=== PATIENT | male | born 1965 | race Caucasian/White ===

== ENCOUNTER 2025-04-22 11:55 | Inpatient (IN) | payer OTHER ==
[~2025-04-22] VITALS: Ht 180.3 cm; Wt 68.1 kg
[2025-04-22] MEDS ORDERED: Ondansetron HCl 2 MG / ML 2ML Vial IV ONE ×2 (12:40→15:25)
[2025-04-22] MEDS ORDERED: CeFAZolin Sodium 1,000 MG in NS 100 ML IV ONE (13:35)
[2025-04-22 13:36] LABS: Calcium, Ionized (POC) 0.98 mmol/L (1.10-1.46); Chloride (POC) 80 mmol/L (98-108); Creatinine (POC) 2.2 mg/dL (0.8-1.3); Glucose (ISTAT POC) 622 mg/dL (70-99); Hematocrit (POC) 40.0 % (41.0-53.0); Hemoglobin (POC) 13.6 g/dL (13.5-17.5); Potassium (POC) 4.6 mmol/L (3.5-5.5); Sodium (POC) 120 mmol/L (135-148); Total CO2 (POC) 28 mmol/L (21-32)
[2025-04-22 13:36] LABS: Hematocrit 35.5 % (37.0-53.0); Hemoglobin 12.1 g/dL (13.5-17.5); Mean Corpuscular HGB Conc 34.1 g/dL (31.5-36.5); Mean Corpuscular Volume 86 fL (80-100); NRBC ABSOLUTE 0.00 K/mm3 (0.00-0.02); NRBC Auto 0.0 /100 WBC (0.0-0.2); Platelet Count 664 K/mm3 (150-400); RDW Coefficient Variation 12.9 % (11.7-14.2); RDW Standard Deviation 40.5 fL (35.1-46.3)
[2025-04-22 14:09] LABS: BAND PERCENT MAN 1 % (0-8); BASOPHILS ABSOLUTE MAN 0.00 K/mm3 (0.00-0.23); BASOPHILS PERCENT MAN 0 % (0-2); EOSINOPHILS ABSOLUTE MAN 0.00 K/mm3 (0.00-0.68); EOSINOPHILS PERCENT MAN 0 % (0-6); LYMPHOCYTES ABSOLUTE MAN 1.33 K/mm3 (0.84-5.20); LYMPHOCYTES PERCENT MAN 6 % (21-46); METAMYELOCYTE ABSOLUTE MAN 0.22 K/mm3 (0.00-0.00); METAMYELOCYTE PERCENT MAN 1 % (0-0); MONOCYTES ABSOLUTE MAN 0.44 K/mm3 (0.16-1.47); MONOCYTES PERCENT MAN 2 % (4-13); NEUTROPHILS ABSOLUTE MAN 20.31 K/mm3 (1.96-9.15); SEG NEUTROPHILS PERCENT MAN 90 % (41-73)
[2025-04-22 14:13] LABS: Alanine Aminotransfer (ALT/SGP 20.0 U/L (12-78); Albumin, Blood 2.2 g/dL (3.4-5.0); Albumin/Globulin Ratio 0.3 (0.8-1.8); Anion Gap 16.0 mmol/L (3-11); Aspartate Aminotrans (AST/SGOT 25.0 U/L (12-37); Bilirubin, Total 0.7 mg/dL (0.1-1.0); Blood Urea Nitrogen 51.0 mg/dL (8-24); CO2, Blood 29.0 mmol/L (21-32); Calcium, Blood 9.8 mg/dL (8.5-10.1); Chloride, Blood 76.0 mmol/L (98-108); Creatinine, Blood 1.73 mg/dL (0.60-1.20); Globulin, Blood 6.8 g/dL (2.2-4.0); Glucose, Blood 607.0 mg/dL (70-99); Potassium, Blood 4.9 mmol/L (3.5-5.5); Sodium, Blood 116.0 mmol/L (136-145); Total Protein, Blood 9.0 g/dL (6.4-8.2)
[2025-04-22] MEDS ORDERED: Insulin Regular 100 Unit/ML 1ML Dose IV ONE ×2 (14:25→16:20)
[2025-04-22] MEDS ORDERED: HYDROmorphone HCl/Pf 1MG SYR IV ONE (14:25)
[2025-04-22 15:16] LABS: pH Blood Venous 7.52 (7.34-7.37)
[2025-04-22] MEDS ORDERED: Vancomycin (Pharmacy Consult) IV SCH (17:15)
[2025-04-22] MEDS ORDERED: Metoclopramide HCl 5MG / ML 2ML Vial IV PRN (17:15)
[2025-04-22] MEDS ORDERED: Ondansetron HCl 2 MG / ML 2ML Vial IV PRN (17:15)
[2025-04-22 17:35] LABS: Anion Gap 14.0 mmol/L (3-11); Blood Urea Nitrogen 53.0 mg/dL (8-24); CO2, Blood 32.0 mmol/L (21-32); Calcium, Blood 9.6 mg/dL (8.5-10.1); Chloride, Blood 79.0 mmol/L (98-108); Creatinine, Blood 1.6 mg/dL (0.60-1.20); Glucose, Blood 499.0 mg/dL (70-99); Potassium, Blood 4.0 mmol/L (3.5-5.5); Sodium, Blood 121.0 mmol/L (136-145)
[2025-04-22] MEDS ORDERED: CeFAZolin Sodium 2,000 MG in NS 100 ML IV SCH (18:00)
[2025-04-22] MEDS ORDERED: Insulin Human Lispro 100 Units/ML 3ML Syringe SC ONE ×2 (18:00)
[2025-04-22] MEDS ORDERED: Metoclopramide HCl 5MG / ML 2ML Vial IV ONE (18:00)
[2025-04-22] MEDS ORDERED: Insulin Human Lispro 100 Units/ML 3ML Syringe SC SCH (20:00)
[2025-04-22] MEDS ORDERED: Heparin Sodium,Porcine 5,000 UNIT/0.5 ML SDV SC SCH (21:00)
[2025-04-22] MEDS ORDERED: Lactobacil 2-S.Thermo-Bifido 1 1 Cap PO SCH (21:00)
[2025-04-22 21:42] VITALS: BP 148/73
[2025-04-22 21:43] LABS: Anion Gap 15.0 mmol/L (3-11); Blood Urea Nitrogen 46.0 mg/dL (8-24); CO2, Blood 31.0 mmol/L (21-32); Calcium, Blood 9.6 mg/dL (8.5-10.1); Chloride, Blood 82.0 mmol/L (98-108); Creatinine, Blood 1.55 mg/dL (0.60-1.20); Glucose, Blood 413.0 mg/dL (70-99); Potassium, Blood 3.6 mmol/L (3.5-5.5); Sodium, Blood 124.0 mmol/L (136-145)
[2025-04-22 23:38] LABS: Anion Gap 8.0 mmol/L (3-11); Blood Urea Nitrogen 45.0 mg/dL (8-24); CO2, Blood 34.0 mmol/L (21-32); Calcium, Blood 8.5 mg/dL (8.5-10.1); Chloride, Blood 88.0 mmol/L (98-108); Creatinine, Blood 1.54 mg/dL (0.60-1.20); Glucose, Blood 311.0 mg/dL (70-99); Potassium, Blood 3.6 mmol/L (3.5-5.5); Sodium, Blood 126.0 mmol/L (136-145)
[2025-04-22 23:39] LABS: U Amphetamine Screen Not Detected; U Barbituate Screen Not Detected; U Benzodiazapine Screen Not Detected; U Buprenorphine Screen Not Detected; U Cannabinoids Screen Not Detected; U Cocaine Screen Not Detected; U Methadone Screen Not Detected; U Methamphetamine Screen Not Detected; U Opiates Screen Not Detected; U Oxycodone Screen Not Detected; U Phencyclidine Screen Not Detected
--- NOTE | 2025-04-22 23:43 | NUR ---
TRANSFER NOTE: PT ARRIVED, ABLE TO TRANSFER SELF TO BED FROM [facility]. PT AOX4 AND ABLE TO MAKE NEEDS KNOWN. WOUND ON THE BACK LOOKS SEVERLY INFECTED, LOOKS LIKE SHINGLES BASED ON IT ON THE TRUNK. PROVIDER NOTIFIED. SCABBED OVER SO INSTRUCTED THAT HE DOESNT NEED TO BE IN [place] ROOM. CONTACT ISOLATION IN PLACE. PT ORIENTED TO ROOM AND CALL LIGHT. PLEASANT AND COOPERATIVE IN CARE. SOME COMPLAINTS OF NAUSEA AND PAIN, MEDICATED PER EMR.
[2025-04-23 01:53] LABS: Hemoglobin 11.1 g/dL (13.5-17.5)
[2025-04-23 01:57] LABS: Hematocrit 32.3 % (37.0-53.0); Mean Corpuscular HGB Conc 34.4 g/dL (31.5-36.5); Mean Corpuscular Volume 85 fL (80-100); NRBC ABSOLUTE 0.00 K/mm3 (0.00-0.02); NRBC Auto 0.0 /100 WBC (0.0-0.2); Platelet Count 656 K/mm3 (150-400); RDW Coefficient Variation 13.1 % (11.7-14.2); RDW Standard Deviation 41.1 fL (35.1-46.3)
[2025-04-23 02:22] LABS: BAND PERCENT MAN 12 % (0-8); BASOPHILS ABSOLUTE MAN 0.00 K/mm3 (0.00-0.23); BASOPHILS PERCENT MAN 0 % (0-2); EOSINOPHILS ABSOLUTE MAN 0.00 K/mm3 (0.00-0.68); EOSINOPHILS PERCENT MAN 0 % (0-6); LYMPHOCYTES ABSOLUTE MAN 0.89 K/mm3 (0.84-5.20); LYMPHOCYTES PERCENT MAN 4 % (21-46); MONOCYTES ABSOLUTE MAN 0.89 K/mm3 (0.16-1.47); MONOCYTES PERCENT MAN 4 % (4-13); MYELOCYTE ABSOLUTE MAN 0.66 K/mm3 (0.00-0.00); MYELOCYTE PERCENT MAN 3 % (0-0); Magnesium, Blood 2.0 mg/dL (1.6-2.4); NEUTROPHILS ABSOLUTE MAN 19.84 K/mm3 (1.96-9.15); SEG NEUTROPHILS PERCENT MAN 77 % (41-73)
[2025-04-23 02:25] LABS: Alanine Aminotransfer (ALT/SGP 13.0 U/L (12-78); Albumin, Blood 1.8 g/dL (3.4-5.0); Albumin/Globulin Ratio 0.4 (0.8-1.8); Anion Gap 9.0 mmol/L (3-11); Aspartate Aminotrans (AST/SGOT 25.0 U/L (12-37); Bilirubin, Total 0.4 mg/dL (0.1-1.0); Blood Urea Nitrogen 46.0 mg/dL (8-24); CO2, Blood 30.0 mmol/L (21-32); Calcium, Blood 8.6 mg/dL (8.5-10.1); Chloride, Blood 89.0 mmol/L (98-108); Creatinine, Blood 1.56 mg/dL (0.60-1.20); Globulin, Blood 5.1 g/dL (2.2-4.0); Glucose, Blood 291.0 mg/dL (70-99); Potassium, Blood 3.7 mmol/L (3.5-5.5); Sodium, Blood 124.0 mmol/L (136-145)
[2025-04-23 02:29] LABS: Total Protein, Blood 6.9 g/dL (6.4-8.2)
[2025-04-23 04:00] VITALS: BP 133/62
--- NOTE | 2025-04-23 05:53 | NUR ---
SHIFT SUMMARY: PT AOX4 TIRED BUT AROUSABLE. ABLE TO MAKE NEEDS KNOWN. SHINGLES LIKE LESIONS ON FRONT R CHEST AND R BACK SHOULDER WOUND IS VERY INFECTED, PURULENT DRAINAGE, HOT AND SENSITIVE. WOUND CLEANED A BIT WITH WOUND CLEANSER AND GAUZE. PT COMPLAINED OF PAIN AND DISCOMFORT FROM THE WOUND, PROVIDER NOTIFIED AND MEDICATED PER EMR. PT COMPLAINED OF SOME ANXIETY AND INABILITY TO SLEEP, PROVIDER ORDERED SOME ATARAX WHICH HAS HELPED. CBGS WERE VERY HIGH IN THE ED AND TRENDING DOWN UPON ADMISSION, Q4 CBG AND INSULIN ORDERED. HAD SEVERE N/V IN ED AND NOT ABLE TO KEEP DOWN ANY FOOD, HAS BEEN MEDICATED AND HAS BEEN ABLE TO EAT SOME CHEESE AND AN ENSURE THIS EVENING AND KEEP IT DOWN. PT STATES HASNT EATEN IN 3-4 DAYS DUE TO N/V. TOLERATING MEDICATIONS WELL, PT PLEASANT AND COOPERATIVE IN CARE. IN BED RESTING, BED IN LOWEST POSITION, CALL LIGHT IN REACH. CONTINUING CARE.
[2025-04-23 06:19] LABS: Alanine Aminotransfer (ALT/SGP 10.0 U/L (12-78); Albumin, Blood 1.8 g/dL (3.4-5.0); Albumin/Globulin Ratio 0.4 (0.8-1.8); Anion Gap 10.0 mmol/L (3-11); Aspartate Aminotrans (AST/SGOT 26.0 U/L (12-37); Bilirubin, Total 0.4 mg/dL (0.1-1.0); Blood Urea Nitrogen 47.0 mg/dL (8-24); CO2, Blood 31.0 mmol/L (21-32); Calcium, Blood 8.6 mg/dL (8.5-10.1); Chloride, Blood 86.0 mmol/L (98-108); Creatinine, Blood 1.54 mg/dL (0.60-1.20); Globulin, Blood 4.9 g/dL (2.2-4.0); Glucose, Blood 317.0 mg/dL (70-99); Potassium, Blood 3.5 mmol/L (3.5-5.5); Sodium, Blood 123.0 mmol/L (136-145); Total Protein, Blood 6.7 g/dL (6.4-8.2)
[2025-04-23 07:29] VITALS: BP 138/71
[2025-04-23] MEDS ORDERED: Insulin NPH 100 Unit / ML 10ML Vial SC ONE (07:40)
[2025-04-23] MEDS ORDERED: NS 1,000 ML IV SCH (08:00)
[2025-04-23 14:59] VITALS: BP 126/67
--- NOTE | 2025-04-23 17:59 | NUR ---
NO CHANGES IN PTS STATUS TODAY. PT HAD C/O PAIN AND NAUSEA BUT HAD RELIEF WITH PRN MEDICATIONS. PT HAS NO QUESTIONS OR CONCERNS AT THIS TIME
[2025-04-23 19:25] VITALS: BP 141/67
[2025-04-23] MEDS ORDERED: Insulin Glargine-Yfgn 100 Unit/mL 3 ML SYR SC SCH (21:00)
[2025-04-24 03:48] VITALS: BP 164/84
--- NOTE | 2025-04-24 04:37 | NUR ---
SHIFT SUMMARY: PT AOX4 IND IN THE ROOM, ALTHOUGH HE IS SLOW. WOUND IS LOOKING BETTER, WITH LESS DRAINAGE, BUT STILL SOME PURULENT/ SEROSANG NOTED. TOLERATING MEDICATIONS WELL. COMPLAINS OF A LOT OF NAUSEA BUT NO VOMITTING THIS NIGHT. SOME PAIN, MEDICATED PER EMR. CBG IS TRENDING DOWN. DOWN TO 133 @0400 CHECK AND DID NOT NEED COVERAGE. SOME PO INTAKE OF SNACKS AND ENSURE. ABLE TO KEEP IT DOWN. PT CALLS APPROPRIATELY AND IS ABLE TO MAKE NEEDS KNOWN. PT IN BED RESTING, BED IN LOWEST POSITION, CALL LIGHT IN REACH. CONTINUING CARE.
[2025-04-24 07:52] VITALS: BP 152/75
[2025-04-24] MEDS ORDERED: NS 250 ML IV PRN ×2 (08:20→22:15)
[2025-04-24 08:40] LABS: Hematocrit 33.1 % (37.0-53.0); Hemoglobin 10.9 g/dL (13.5-17.5); Mean Corpuscular HGB Conc 32.9 g/dL (31.5-36.5); Mean Corpuscular Volume 89 fL (80-100); NRBC ABSOLUTE 0.00 K/mm3 (0.00-0.02); NRBC Auto 0.0 /100 WBC (0.0-0.2); Platelet Count 521 K/mm3 (150-400); RDW Coefficient Variation 13.3 % (11.7-14.2); RDW Standard Deviation 43.6 fL (35.1-46.3)
[2025-04-24 09:06] LABS: Vancomycin, Trough 28.8 ug/mL (5.0-10.0)
[2025-04-24 09:08] LABS: Anion Gap 7.0 mmol/L (3-11); Blood Urea Nitrogen 39.0 mg/dL (8-24); CO2, Blood 30.0 mmol/L (21-32); Calcium, Blood 8.0 mg/dL (8.5-10.1); Chloride, Blood 95.0 mmol/L (98-108); Creatinine, Blood 1.62 mg/dL (0.60-1.20); Glucose, Blood 168.0 mg/dL (70-99); Potassium, Blood 3.1 mmol/L (3.5-5.5); Sodium, Blood 129.0 mmol/L (136-145)
--- NOTE | 2025-04-24 17:31 | NUR ---
NOTE PT RESTING. UP ADLIB. GAIT STEADY. TOOK A SHOWER. CHANGED OSTOMY WAFER AND BAG. VSS. AC/HS CBG. INSULIN NEEDED TO COVER VIA SLIDING SCALE. MEDICATED WITH TRAMADOL X2. EFFECTIVE FOR WOUND PAIN. MEDICATED WITH ZOFRAN X2. PT HAS CHRONIC HICCUPS. 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 LESS RED, AND PAINFUL. VOIDING PER URINAL. EATING WELL. BED LOW AND LOCKED. CALL LIGHT WITH IN REACH. CARE ONGOING.
[2025-04-24 19:28] VITALS: BP 130/73
[2025-04-24] MEDS ORDERED: Insulin Glargine-Yfgn 100 Unit/mL 3 ML SYR SC SCH (21:00)
[2025-04-24] MEDS ORDERED: Insulin Human Lispro 100 Units/ML 3ML Syringe SC SCH (21:00)
--- NOTE | 2025-04-25 04:23 | NUR ---
SHIFT SUMMARY PATIENT HAD NO ACUTE CHANGES. ALERT ORIENTED AND INDEPENDENT IN ROOM. DENIES CHEST PAIN, SOB, AND N/V. VSS/AFEBRILE. PIV INTACT. IV ABX INFUSED. CBG 267. CALL LIGHT IN REACH. BED IN LOWEST POSITION. WILL CONTINUE TO MONITOR UNTIL DAY SHIFT NURSE ASSUMES CARE.
[2025-04-25 05:17] VITALS: BP 143/73
[2025-04-25] MEDS ORDERED: Polyethylene Glycol 3350 17 gm PO PRN (07:20)
[2025-04-25 07:42] LABS: Anion Gap 7.0 mmol/L (3-11); Blood Urea Nitrogen 29.0 mg/dL (8-24); CO2, Blood 31.0 mmol/L (21-32); Calcium, Blood 8.2 mg/dL (8.5-10.1); Chloride, Blood 95.0 mmol/L (98-108); Creatinine, Blood 1.51 mg/dL (0.60-1.20); Glucose, Blood 181.0 mg/dL (70-99); Potassium, Blood 3.3 mmol/L (3.5-5.5); Sodium, Blood 130.0 mmol/L (136-145)
[2025-04-25 08:04] VITALS: BP 132/77
--- NOTE | 2025-04-25 08:49 | NUR ---
IV LEFT WRIST IV PAINFUL WITH FLUSHING. TALKED WITH CHARGE NURSE. JOSELINE ASHFORD PLANNED D/T VANCOMYCIN TX. CARE ONGOING.
[2025-04-25] MEDS ORDERED: Enoxaparin 40 MG/0.4 ML SYR SC SCH (09:00)
--- NOTE | 2025-04-25 16:52 | NUR ---
NOTE PT RESTING. 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 PT DECLINED HEATING PAD OR WOUND COVERAGE. MEDCIATED X1 FOR PAIN. PT SHOWERED. CHANGED HIS OSTOMY. FRIENDS BROUGHT IN HIS HOME OSTOMY SUPPLIES. EATING WELL. RA. VSS. POWER GLIDE PLACED D/T VANCOMYCIN TREATEMENT IN RIGHT UE. PT TOLERATED WELL. REFUSED SCD. BED LOW LOCKED, CALL LIGHT WITH IN REACH. CARE ONGOING.
[2025-04-25 17:19] VITALS: BP 158/81
[2025-04-25 19:36] VITALS: BP 206/99
[2025-04-25] MEDS ORDERED: Docusate Sodium/Senna 1 Tab PO SCH (21:00)
[2025-04-25 22:51] VITALS: BP 124/63
--- NOTE | 2025-04-26 04:03 | NUR ---
SHIFT SUMMARY PATIENT HAD NO ACUTE CHANGES. ALERT ORIENTED AND INDEPENDENT IN ROOM. DENIES CHEST PAIN AND SOB. NAUSEOUS X ONE AND RESOLVED. SBP ELEVATED AT THAT TIME AND LATER RECHECKED WNL. COLOSTOMY SELF CARE. CBG 254. POWERGLIDE RU ARM INTACT. SLEPT MOST OF THE SHIFT. CALL LIGHT IN REACH. BED IN LOWEST POSITION. WILL CONTINUE TO MONITOR UNTIL DAY SHIFT NURSE ASSUMES CARE.
[2025-04-26 04:09] VITALS: BP 143/72
[2025-04-26 07:56] VITALS: BP 133/79
[2025-04-26 08:32] LABS: Hematocrit 29.1 % (37.0-53.0); Hemoglobin 9.8 g/dL (13.5-17.5); Mean Corpuscular HGB Conc 33.7 g/dL (31.5-36.5); Mean Corpuscular Volume 88 fL (80-100); NRBC ABSOLUTE 0.00 K/mm3 (0.00-0.02); NRBC Auto 0.0 /100 WBC (0.0-0.2); Platelet Count 569 K/mm3 (150-400); RDW Coefficient Variation 13.4 % (11.7-14.2); RDW Standard Deviation 43.8 fL (35.1-46.3)
[2025-04-26 08:50] LABS: Magnesium, Blood 1.7 mg/dL (1.6-2.4)
[2025-04-26 08:51] LABS: Albumin, Blood 1.8 g/dL (3.4-5.0); Anion Gap 7 mmol/L (3-11); Blood Urea Nitrogen 22 mg/dL (8-24); CO2, Blood 33 mmol/L (21-32); Calcium, Blood 8.3 mg/dL (8.5-10.1); Chloride, Blood 97 mmol/L (98-108); Creatinine, Blood 1.31 mg/dL (0.60-1.20); Glucose, Blood 160 mg/dL (70-99); Phosphorus, Blood 1.9 mg/dL (2.5-4.9); Potassium, Blood 3.7 mmol/L (3.5-5.5); Sodium, Blood 133 mmol/L (136-145); Vancomycin, Trough 16.5 ug/mL (5.0-10.0)
--- NOTE | 2025-04-26 10:39 | NUR ---
ASSUMED CARE OF PATIENT AT 0700. PATIENT IS RESTING IN BED. AWAKE. 0830-LARGE DRAINING WOUND TO MID UPPER BACK. LINENS CHANGED. HEALING, SCABBED OVER SHINGLES RASH ALSO NOTED TO LEFT TORSO.
[2025-04-26 16:01] VITALS: BP 149/83
[2025-04-26] MEDS ORDERED: Sodium Phosphate Mono/Dibasic 250 MG Tab PO SCH (17:00)
--- NOTE | 2025-04-26 17:55 | NUR ---
PATIENT WITH UNEVENTFUL SHIFT TODAY. WOUND TO UPPER MID BACK WITH DRAINAGE. DRESSING WAS APPLIED. REMOVED AT PATIENT REQUEST. HEALING SHINGLES WOUNDS NOTED. IV ANTIBIOTICS INFUSED WITH NO DIFFICULTY THROUGH POWERGLIDE TO RIGHT UPPER ARM. MEDICATED ONCE THIS SHIFT FOR PAIN AND ONCE FOR NAUSEA/REFLUX. PATIENT WITH HICCUPS MOST OF THE DAY IN WHICH HE STATES 'AREN'T LETTING ME REST.' GIVEN REGLAN WHICH HELPED CALL LIGHT WITHIN REACH
[2025-04-26 19:50] VITALS: BP 130/75
[2025-04-27 03:15] VITALS: BP 137/78
[2025-04-27 04:17] LABS: Hematocrit 29.1 % (37.0-53.0); Hemoglobin 9.3 g/dL (13.5-17.5); Mean Corpuscular HGB Conc 32.0 g/dL (31.5-36.5); Mean Corpuscular Volume 90 fL (80-100); NRBC ABSOLUTE 0.00 K/mm3 (0.00-0.02); NRBC Auto 0.0 /100 WBC (0.0-0.2); Platelet Count 563 K/mm3 (150-400); RDW Coefficient Variation 13.6 % (11.7-14.2); RDW Standard Deviation 45.0 fL (35.1-46.3)
--- NOTE | 2025-04-27 04:21 | NUR ---
SHIFT SUMM: PT HAS BEEN RELAXING AND IND IN ROOM TO THE BATHROOM. PT CALLS TO MAKE NEEDS KNOWN AND HAS RECIEVED WOUND CARE THIS SHIFT AND FRESH LINEN CHANGES FOR WEEPING WOUND ON BACK. PT HAS BEEN MEDICATED FOR PAIN AND NAUSEA PER EMAR. PT HAS PATENT PG TO LANDY. PT IS IN CONTACT PRECAUTIONS FOR MRSA IN THE WOUNDS. BED IS LOW AND LOCKED FOR SAFETY AND CALL LIGHT IN REACH.
[2025-04-27 04:33] LABS: Magnesium, Blood 1.7 mg/dL (1.6-2.4)
[2025-04-27 04:34] LABS: Albumin, Blood 1.8 g/dL (3.4-5.0); Anion Gap 5 mmol/L (3-11); Blood Urea Nitrogen 21 mg/dL (8-24); CO2, Blood 37 mmol/L (21-32); Calcium, Blood 7.9 mg/dL (8.5-10.1); Chloride, Blood 93 mmol/L (98-108); Creatinine, Blood 1.33 mg/dL (0.60-1.20); Glucose, Blood 311 mg/dL (70-99); Phosphorus, Blood 2.5 mg/dL (2.5-4.9); Potassium, Blood 3.5 mmol/L (3.5-5.5); Sodium, Blood 131 mmol/L (136-145)
[2025-04-27 07:38] VITALS: BP 139/79
[2025-04-27] MEDS ORDERED: Prochlorperazine Edisylate 10 mg Vial IV PRN (10:10)
--- NOTE | 2025-04-27 19:14 | NUR ---
DAY SHIFT SUMMARY: PT A&O X4; CALM AND COOPERATIVE WITH CARE. MEDICATED FOR PAIN PER EMAR. GENERAL SURGERY (DR GAMBLE) FOLLOWING; NO SURGERY PLANNED AT THIS TIME; DIET CHANGED TO CLEAR LIQUIDS THIS SHIFT. COLOSTOMY TO RLQ; PATIENT SELF-MANAGES; SITE C/D/I. POSITIVE BLOOD CULTURES REPORTED THIS SHIFT, PER LAB. IV ABX CONTINUING. BED LOW & LOCKED; CALL LIGHT WITHIN REACH. REPORT GIVEN TO ONCOMING NURSE.
[2025-04-27 20:54] VITALS: BP 110/75
[2025-04-28] VITALS (15 sets, daily range): BP systolic 109–150; BP diastolic 56–78
--- NOTE | 2025-04-28 03:49 | NUR ---
SHIFT SUMM: PT HAS BEEN RESTING THIS SHIFT AND IS IND IN THE ROOM. PT IS CURRENTLY ON RA AND HAS BEEN MEDICATED PER EMAR FOR PAIN AND NAUSEA. WOUND CARE COMPLETE ON WOUND ON UPPER BACK. PT ON CLEAR LIQUIDS. PT HAS CALL LIGHT IN REACH AND BED LOW AND LOCKED FOR SAFETY.
[2025-04-28 05:33] LABS: Hematocrit 25.1 % (37.0-53.0); Hemoglobin 8.2 g/dL (13.5-17.5); Mean Corpuscular HGB Conc 32.7 g/dL (31.5-36.5); Mean Corpuscular Volume 90 fL (80-100); NRBC ABSOLUTE 0.00 K/mm3 (0.00-0.02); NRBC Auto 0.0 /100 WBC (0.0-0.2); Platelet Count 492 K/mm3 (150-400); RDW Coefficient Variation 13.7 % (11.7-14.2); RDW Standard Deviation 44.7 fL (35.1-46.3)
[2025-04-28 06:00] LABS: Albumin, Blood 1.7 g/dL (3.4-5.0); Anion Gap 7 mmol/L (3-11); Blood Urea Nitrogen 18 mg/dL (8-24); CO2, Blood 33 mmol/L (21-32); Calcium, Blood 7.7 mg/dL (8.5-10.1); Chloride, Blood 93 mmol/L (98-108); Creatinine, Blood 1.22 mg/dL (0.60-1.20); Glucose, Blood 383 mg/dL (70-99); Magnesium, Blood 1.5 mg/dL (1.6-2.4); Phosphorus, Blood 3.7 mg/dL (2.5-4.9); Potassium, Blood 3.7 mmol/L (3.5-5.5); Sodium, Blood 129 mmol/L (136-145)
--- NOTE | 2025-04-28 07:36 | NUR ---
ASSUMPTION OF CARE: CONTACT PRECAUTIONS FOR MRSA IN WOUNDS. THIS RN ASSUMED CARE OF PATIENT c ORIENTING HOMERO JACKMAN. AWAKE DURING SHIFT CHANGE REPORT. LYING IN BED ON LEFT SIDE, FACING WINDOW c HOB ELEVATED. WOUND ON BACK EXPOSED; AREA c SLOUGHING WOUND BED AND SURROUDNING ERYTHEMA AND EDEMA. NO C/O PAIN OR DISCOMFORT AT THIS TIME. BREATHING EVEN AND UNLABORED c ROOM AIR. BED IN LOWEST POSITION. CALL LIGHT WITHIN REACH. ACUTE NEEDS MET.
--- NOTE | 2025-04-28 11:42 | NUR ---
PROVIDER CONTACT: DR CONNORS CONTACTED VIA PHONE AT 1118 THIS AM DUE TO AN ELEVATED CBG OF 378. PLAN TO CONTINUE WITH INSULIN MEDICATION DOSING PER EMAR AT THIS TIME. NO ADDITIONAL ORDERS. PT TO SURGERY VIA BED.
--- NOTE | 2025-04-28 11:44 | NUR ---
PATIENT IN TO PREOP. IN GOWN. IV ACCESS, PATENT, FLUSHED WITH 10 ML. SCD'S ON. NO C/O PAIN OR NAUSEA. RESTROOM USED. ORIENTED. EXPLAINED NEED FOR PROCEDURE, VERFIED WRIST BAND. RESTING EYES OPEN.
--- NOTE | 2025-04-28 11:50 | NUR ---
LUNGS CLEAR. VSS. ON RA.
--- NOTE | 2025-04-28 11:58 | NUR ---
DRAINED OSTOMY BAG, FLUID DARK STOOL, 50ML OUT. STOMA RED BEEFY.
[2025-04-28] MEDS ORDERED: FentaNYL Citrate 50 MCG/ML 2 ML Injection ONE (12:00)
[2025-04-28] MEDS ORDERED: Rocuronium Bromide 10 MG/ML 5ML Injection IV ONE (12:00)
[2025-04-28] MEDS ORDERED: Midazolam HCl 1MG / ML 2ML Vial ONE (12:00)
[2025-04-28] MEDS ORDERED: Bupivacaine 0.5% HCl 5 MG/ML 30MLVIAL ONE (12:02)
[2025-04-28] MEDS ORDERED: Ondansetron HCl 2 MG / ML 2ML Vial IV PRN (12:45)
[2025-04-28] MEDS ORDERED: Prochlorperazine Edisylate 10 mg Vial IV PRN (12:45)
[2025-04-28] MEDS ORDERED: FentaNYL Citrate 50 MCG/ML 2 ML Injection IV PRN ×3 (12:45→12:50)
[2025-04-28] MEDS ORDERED: HYDROmorphone HCl/Pf 1MG SYR IV PRN (12:45)
[2025-04-28] MEDS ORDERED: Sugammadex Sodium 200 MG/2ML SDV (100 MG/ML) ONE (12:54)
--- NOTE | 2025-04-28 13:58 | NUR ---
1250 RETURNED TO ROOM FROM PACU. AWAKE BUT DROWSY. PT STOOD TO TRANSFER FROM [facility] TO BED. MEPILEX DREDDING IN PLACE TO UPPER BACK BETWEEN SHOULDER BLADES. MEPILEX IN PLACE WITH SOME SANGUINOUS SHADOWING. PT STATES MILD PAIN. EATING LUNCH
--- NOTE | 2025-04-28 16:33 | NUR ---
SHIFT SUMMARY: PT A&OX4 THIS SHIFT. COOPERATIVE WITH CARE. AMBULATES INDEPENDENTLY IN THE ROOM. COLOSTOMY INTACT. PATIENT IS ABLE TO PERFORM SELF CARE. I&D WAS DONE THIS AFTERNOON. MEPILEX DRESSING IN PLACE C/D/I. PT STS HE IS VERY PAINFUL. MEDICATED PER EMAR. INITIALLY 05/26 WITH REASSESSMENT AT 02/23 REPORTED BY PATIENT. PT DENIES SHORTNESS OF BREATH AND/OR CHEST PAIN. RESTING IN BED AT THIS TIME. BREATHING EVEN AND UNLABORED. BED IN THE LOWEST POSITION. CALL LT WITHIN REACH.
[2025-04-28 20:26] LABS: Vancomycin, Random 22.5 ug/mL
[2025-04-28] MEDS ORDERED: Insulin Glargine-Yfgn 100 Unit/mL 3 ML SYR SC SCH (21:00)
[2025-04-29 02:15] VITALS: BP 117/74
--- NOTE | 2025-04-29 04:49 | NUR ---
COLLATOR HAND SUMMARY PT IS A&OX4, VSS. PT IS COOPERATIVE WITH CARE AND INDEPENDENTLY AMBULATES IN ROOM. PT HAD I&D DURING AM SHIFT. I&D SITE WAS DRAINING HEAVY SEROSANGUINEOUS FLUID EARLY INTO PM SHIFT, BUT DRAINAGE AMOUNT HAS SINCE DECREASED TO MODERATE. DRESSING CHANGED ONCE. SEE WOUND ASSESSMENT AND SHIFT ASSESSMENT FOR DETAILS. DRESSING REMAINS CDI. PT C/O 04/25 PAIN IN UPPER BACK. PT WAS OFFERED PAIN MEDICATION, BUT REFUSED. REPOSITION AND DISTRACTION/DIVERSION USED INSTEAD FOR PAIN MANAGEMENT. PT'S COLOSTOMY SITE WNL. PT ABLE TO PERFORM SELF CARE FOR SITE AND BAG. PT'S AFFECT/MOOD REMAINS FLAT AND WITHDRAWN. PT USES CALL LIGHT APPROPRIATELY AND MAKES NEEDS KNOWN. BED RAILS UP X 2, BED IN LOWEST POSITION, BED WHEELS LOCKED, PERSONAL BELONGINGS AND CALL LIGHT WITHIN REACH FOR SAFETY.
[2025-04-29] MEDS ORDERED: Mag Sulfate 1 GM/D5% 100ML 100 ML IV STA (07:18)
[2025-04-29 07:40] VITALS: BP 93/67
[2025-04-29 10:07] LABS: Vancomycin, Trough 17.4 ug/mL (5.0-10.0)
[2025-04-29 15:48] VITALS: BP 124/72
[2025-04-29 19:44] VITALS: BP 135/67
--- NOTE | 2025-04-29 20:55 | NUR ---
END OF SHIFT SUMMARY: A&Ox4. PLEASANT AND COOPERATIVE WITH CARE. CALLS APPROPRIATELY AND IS ABLE TO ADVOCATE NEEDS EFFECTIVELY. CONTINENT OF BOWEL AND BLADDER; LBM TODAY AND IS CONTINUSOUS c COLOSTOMY RLQ. AMBULATES INDEPENDENTLY. MEDS WHOLE c FLUIDS. PAIN TO BACK c ANY PRESSURE, BUT DENIES NEED FOR PAIN MEDS. WILL NEED SIX WEEKS ABT AFTER NEGATIVE BLOOD CULTURE AND FOLLOW-UP WITH WOUND CARE CLINIC. BROTHER IN TO VISIT TODAY AND WILL CALL SURGEON WHERE HE IS SCHEDULED TO HAVE OSTOMY TAKE-DOWN DONE TO RESCHEDULE. BED IN LOWEST POSITION, CALL LIGHT WITHIN REACH, ALL NEEDS MET. REPORT TO ONCOMING NURSE.
[2025-04-30 02:20] VITALS: BP 131/70
--- NOTE | 2025-04-30 04:06 | NUR ---
PROGRAM FACILITATOR SUMMARY PT IS A&OX4, VSS, EXCEPT SLIGHTLY ELEVATED BP. PT IS COOPERATIVE WITH CARE AND INDEPENDENTLY AMBULATES IN ROOM. PT'S AFFECT/MOOD IS GREATLY IMPROVED AND IS WNL. PT RECEPTIVE TO EDUCATION AND ASKS QUESTIONS. WOUND DRESSING FOR I&D SITE CHANGED DURING AM SHIFT. I&D SITE REMAINS WNL AND DRESSING REMAINS CDI. SEE SHIFT ASSESSMENT FOR DETAILS. PT'S COLOSTOMY SITE WNL. PT ABLE TO PERFORM SELF CARE FOR SITE AND BAG. PT C/O 610 UPPER BACK PAIN AND WAS GIVEN TYLENOL. PT SLEPT SHORTLY AFTER AND HAS BEEN SLEEPING FOR MOST OF THE SHIFT. CHEST RISE AND RESPIRATIONS NOTED. PT APPROPRIATELY MAKES NEEDS KNOWN USING CALL LIGHT WHEN AWAKE. BED RAILS UP X 2, BED IN LOWEST POSITION, BED WHEELS LOCKED, PERSONAL BELONGINGS AND CALL LIGHT WITHIN REACH FOR SAFETY.
[2025-04-30 06:54] LABS: Hematocrit 23.3 % (37.0-53.0); Hemoglobin 7.5 g/dL (13.5-17.5); Mean Corpuscular HGB Conc 32.2 g/dL (31.5-36.5); Mean Corpuscular Volume 90 fL (80-100); NRBC ABSOLUTE 0.00 K/mm3 (0.00-0.02); NRBC Auto 0.0 /100 WBC (0.0-0.2); Platelet Count 658 K/mm3 (150-400); RDW Coefficient Variation 14.1 % (11.7-14.2); RDW Standard Deviation 46.2 fL (35.1-46.3)
[2025-04-30 08:28] VITALS: BP 109/66
[2025-04-30 12:34] LABS: Albumin, Blood 1.8 g/dL (3.4-5.0); Anion Gap 12 mmol/L (3-11); Blood Urea Nitrogen 19 mg/dL (8-24); CO2, Blood 31 mmol/L (21-32); Calcium, Blood 8.5 mg/dL (8.5-10.1); Chloride, Blood 100 mmol/L (98-108); Creatinine, Blood 1.63 mg/dL (0.60-1.20); Glucose, Blood 132 mg/dL (70-99); Magnesium, Blood 1.7 mg/dL (1.6-2.4); Phosphorus, Blood 4.4 mg/dL (2.5-4.9); Potassium, Blood 4.5 mmol/L (3.5-5.5); Sodium, Blood 138 mmol/L (136-145)
[2025-04-30] MEDS ORDERED: JARDIANCE10 MG PO (14:33)
[2025-04-30] MEDS ORDERED: FAMO20 PO (14:34)
[2025-04-30] MEDS ORDERED: INSULIN GL100 UNIT/2 SC (14:38)
--- NOTE | 2025-04-30 16:53 | NUR ---
SHIFT SUMMARY AND DISCHARGE PATIENT ALERT AND INDEPENDENT IN THE ROOM. PATIENT SHOWERED AND WOUND CARE DONE AFTER SHOWER. PATIENT ABLE TO CHANGE OSTOMY APPLIANCE INDEPENDENTLY. STOMA PINK, DRAINING BROWN LIQUID STOOL. PATIENT TO FOLLOW UP WITH WOUND CLINIC AND [facility] FOR FURTHER CARE. CARE MANAGEMENT ARRANGED TRASPORTATION FOR ALL APPOINTMENTS. DISCHARGE INSTRUCTIONS PROVIDED AND REVIEWED WITH PATIENT. POWERGLIDE LEFT IN PLACE FOR ANTIBIOTICS OUTPATIENT. PATIENT DRESSED SELF PRIOR TO DISCHARGE. PATIENT TAKEN DOWN VIA WHEELCHAIR TO MEET TAXI. BELONGINGS SENT WITH OPAL.
== END 2025-04-30 16:52 | disposition home or self-care (01) | DRG 853 ==
LOC: ER 11:55 → ERHOLD 17:11 → MEDS 17:11
PROVIDERS: Emergency Medicine; Internal Medicine; Nurse Practitioner Acute Care; Pharmacist; Physician Assistant; Surgery; ADMIT Student in an Organized Health Care Education/Training Program
PROC: 3E03329 Introduction of Other Anti-infective into Peripheral Vein, Percutaneous Approach (ICD-10-PCS; 2025-04-22)
PROC: 0JB70ZZ Excision of Back Subcutaneous Tissue and Fascia, Open Approach (ICD-10-PCS; principal; 2025-04-28 11:00)
DX: A41.9 Sepsis, unspecified organism (principal); I26.90 Septic pulmonary embolism without acute cor pulmonale; L03.312 Cellulitis of back [any part except buttock and flank]; E87.1 Hypo-osmolality and hyponatremia; B02.8 Zoster with other complications; E87.3 Alkalosis; L02.212 Cutaneous abscess of back [any part, except buttock and flank]; I96 Gangrene, not elsewhere classified; E11.65 Type 2 diabetes mellitus with hyperglycemia; I10 Essential (primary) hypertension; R79.89 Other specified abnormal findings of blood chemistry; F15.10 Other stimulant abuse, uncomplicated; E86.1 Hypovolemia; E87.6 Hypokalemia; Z87.891 Personal history of nicotine dependence; Z93.3 Colostomy status; Z85.89 Personal history of malignant neoplasm of other organs and systems
CPT/HCPCS: 36415; 71250; 71260; 80047; 80048; 80053; 80069; 80202; 82010; 82803; 82947; 83605; 83690; 83735; 84484; 85014; 85025; 85027; 87040; 87070; 87075; 87077; 87147; 87186; 87205; 93005; 93010; 93306; 96361; 96365-59; 96375; 96376; 99285-25; A9270; J0690; J1171; J1644; J1650; J1815; J2250; J2405; J2704; J2765; J3010; J3373; J3475; J7030; J7040; J7050; J7120; Q9967

== ENCOUNTER 2025-05-01 02:22 | Day surgery (SDC) | payer OTHER ==
[~2025-05-01 02:22] MED LIST: FAMO20 PO; INSULIN GL100 UNIT/2 SC; JARDIANCE10 MG PO
[2025-05-01] MEDS ORDERED: DAPTOmycin 400 MG in NS 50 ML IV SCH (06:00)
[2025-05-01 15:20] VITALS: BP 128/75
[2025-05-02] MEDS ORDERED: DAPTOMYCIN500 M3 IV (11:30)
== END 2025-05-01 15:40 | disposition home or self-care (01) ==
LOC: ATC 02:22
DX: A41.02 Sepsis due to Methicillin resistant Staphylococcus aureus (principal); E11.10 Type 2 diabetes mellitus with ketoacidosis without coma; I10 Essential (primary) hypertension; E78.5 Hyperlipidemia, unspecified; Z79.84 Long term (current) use of oral hypoglycemic drugs; Z87.891 Personal history of nicotine dependence
CPT/HCPCS: 96365; C1751; J0878

== ENCOUNTER 2025-05-02 01:46 | Day surgery (SDC) | payer OTHER ==
--- NOTE | 2025-05-02 08:47 | NUR ---
SPOKE WITH Angeles AT DR MAC OFFICE REGARDING PATIENTS OPEN AND WEEPING WOUND ON HIS BACK AND WOUND CARE BEING UNABLE TO SEE THE PATIENT UNTIL 05/13. ANGELES SAID THAT DR BUBBA CHAVEZ WAS CURRENTLY ON THE PHONE WITH THE PATIENTS BROTHER AND THEY WERE GOING TO RECOMMEND THE PATIENT BE SEEN IN THE ER FOR FOLLOW UP CARE.
[2025-05-02] MEDS ORDERED: DAPTOMYCIN500 M3 IV (11:30)
[2025-05-02] MEDS ORDERED: DAPTOmycin 400 MG in NS 50 ML IV SCH (12:20)
[2025-05-02 13:46] VITALS: BP 143/70
== END 2025-05-02 14:04 | disposition home or self-care (01) ==
LOC: ATC 01:46
DX: R78.81 Bacteremia (principal); B02.9 Zoster without complications; I10 Essential (primary) hypertension; E11.10 Type 2 diabetes mellitus with ketoacidosis without coma; E78.5 Hyperlipidemia, unspecified; E87.1 Hypo-osmolality and hyponatremia; Z79.84 Long term (current) use of oral hypoglycemic drugs; Z87.891 Personal history of nicotine dependence
CPT/HCPCS: 96365; J0878

== ENCOUNTER 2025-05-02 11:05 | Emergency (ER) | payer OTHER ==
[~2025-05-02] VITALS: Ht 177.8 cm; Wt 68.0 kg
[2025-05-02] MEDS ORDERED: DAPTOMYCIN500 M3 IV (11:30)
== END 2025-05-02 12:45 | disposition home or self-care (01) ==
LOC: ER 11:05
DX: Z48.01 Encounter for change or removal of surgical wound dressing (principal); E11.9 Type 2 diabetes mellitus without complications; K21.9 Gastro-esophageal reflux disease without esophagitis; I10 Essential (primary) hypertension; Z79.899 Other long term (current) drug therapy; Z79.4 Long term (current) use of insulin
CPT/HCPCS: 99282

== ENCOUNTER 2025-05-03 05:46 | Day surgery (SDC) | payer OTHER ==
[~2025-05-03 05:46] MED LIST changes: +DAPTOMYCIN500 M3 IV
== END 2025-05-03 23:00 | disposition home or self-care (01) ==
LOC: WOUND 05:46
DX: E11.622 Type 2 diabetes mellitus with other skin ulcer (principal); L98.425 Non-pressure chronic ulcer of back with muscle involvement without evidence of necrosis; L02.212 Cutaneous abscess of back [any part, except buttock and flank]; Z87.891 Personal history of nicotine dependence
CPT/HCPCS: A6213; G0463

== ENCOUNTER 2025-05-03 06:15 | Day surgery (SDC) | payer OTHER ==
[~2025-05-03 06:15] MED LIST changes: +DAPTOmycin 400 MG in NS 50 ML IV SCH
[2025-05-03 15:24] VITALS: BP 152/100
== END 2025-05-03 15:46 | disposition home or self-care (01) ==
LOC: ATC 06:15
DX: R78.81 Bacteremia (principal); B95.62 Methicillin resistant Staphylococcus aureus infection as the cause of diseases classified elsewhere; B02.9 Zoster without complications; E11.9 Type 2 diabetes mellitus without complications; I10 Essential (primary) hypertension; Z85.00 Personal history of malignant neoplasm of unspecified digestive organ; Z87.891 Personal history of nicotine dependence; Z79.84 Long term (current) use of oral hypoglycemic drugs; Z93.3 Colostomy status
CPT/HCPCS: 96365; J0878

== ENCOUNTER 2025-05-04 01:17 | Day surgery (SDC) | payer OTHER ==
[~2025-05-04 01:17] MED LIST changes: -DAPTOmycin 400 MG in NS 50 ML IV SCH
[2025-05-04] MEDS ORDERED: DAPTOmycin 400 MG in NS 50 ML IV SCH (06:00)
[2025-05-04 12:40] VITALS: BP 106/74
== END 2025-05-04 13:04 | disposition home or self-care (01) ==
LOC: ATC 01:17
DX: R78.81 Bacteremia (principal); B95.62 Methicillin resistant Staphylococcus aureus infection as the cause of diseases classified elsewhere; B02.9 Zoster without complications; E11.9 Type 2 diabetes mellitus without complications; I10 Essential (primary) hypertension; Z85.00 Personal history of malignant neoplasm of unspecified digestive organ; Z87.891 Personal history of nicotine dependence; Z79.84 Long term (current) use of oral hypoglycemic drugs; Z93.3 Colostomy status
CPT/HCPCS: 96365; J0878

== ENCOUNTER 2025-05-05 00:36 | Day surgery (SDC) | payer OTHER ==
[2025-05-05] MEDS ORDERED: DAPTOmycin 400 MG in NS 50 ML IV SCH (06:00)
[2025-05-05 13:34] VITALS: BP 106/64
== END 2025-05-05 13:56 | disposition home or self-care (01) ==
LOC: ATC 00:36
DX: R78.81 Bacteremia (principal); B95.62 Methicillin resistant Staphylococcus aureus infection as the cause of diseases classified elsewhere; B02.9 Zoster without complications; E11.9 Type 2 diabetes mellitus without complications; I10 Essential (primary) hypertension; Z85.00 Personal history of malignant neoplasm of unspecified digestive organ; Z87.891 Personal history of nicotine dependence; Z79.84 Long term (current) use of oral hypoglycemic drugs; Z93.3 Colostomy status
CPT/HCPCS: 96365; J0878

== ENCOUNTER 2025-05-06 00:42 | Day surgery (SDC) | payer OTHER | END 2025-05-06 23:00 | disposition home or self-care (01) | LOC: WOUND 00:42 | DX: E11.622 Type 2 diabetes mellitus with other skin ulcer (principal); L98.425 Non-pressure chronic ulcer of back with muscle involvement without evidence of necrosis; L02.212 Cutaneous abscess of back [any part, except buttock and flank]; R78.81 Bacteremia; B95.62 Methicillin resistant Staphylococcus aureus infection as the cause of diseases classified elsewhere; B02.9 Zoster without complications; I10 Essential (primary) hypertension; E78.5 Hyperlipidemia, unspecified; Z85.00 Personal history of malignant neoplasm of unspecified digestive organ; Z87.891 Personal history of nicotine dependence; Z79.84 Long term (current) use of oral hypoglycemic drugs; Z93.3 Colostomy status | CPT/HCPCS: 96365; G0463; J0878 ==

== ENCOUNTER 2025-05-06 01:30 | Day surgery (SDC) | payer OTHER ==
[2025-05-06] MEDS ORDERED: DAPTOmycin 400 MG in NS 50 ML IV SCH (06:00)
[2025-05-06 13:12] VITALS: BP 147/75
== END 2025-05-06 13:35 | disposition home or self-care (01) ==
LOC: ATC 01:30
DX: R78.81 Bacteremia (principal); B95.62 Methicillin resistant Staphylococcus aureus infection as the cause of diseases classified elsewhere; B02.9 Zoster without complications; E11.9 Type 2 diabetes mellitus without complications; I10 Essential (primary) hypertension; E78.5 Hyperlipidemia, unspecified; Z85.00 Personal history of malignant neoplasm of unspecified digestive organ; Z87.891 Personal history of nicotine dependence; Z79.84 Long term (current) use of oral hypoglycemic drugs; Z93.3 Colostomy status
CPT/HCPCS: J0878

== ENCOUNTER 2025-05-07 01:09 | Day surgery (SDC) | payer OTHER ==
[2025-05-07] MEDS ORDERED: DAPTOmycin 400 MG in NS 50 ML IV SCH (06:00)
[2025-05-07 13:31] VITALS: BP 109/71
== END 2025-05-07 14:00 | disposition home or self-care (01) ==
LOC: ATC 01:09
DX: R78.81 Bacteremia (principal); B95.62 Methicillin resistant Staphylococcus aureus infection as the cause of diseases classified elsewhere; B02.9 Zoster without complications; E11.9 Type 2 diabetes mellitus without complications; I10 Essential (primary) hypertension; E78.5 Hyperlipidemia, unspecified; Z85.00 Personal history of malignant neoplasm of unspecified digestive organ; Z87.891 Personal history of nicotine dependence; Z79.4 Long term (current) use of insulin; Z79.84 Long term (current) use of oral hypoglycemic drugs; Z79.899 Other long term (current) drug therapy; Z93.3 Colostomy status
CPT/HCPCS: 96365; J0878

== ENCOUNTER 2025-05-08 01:17 | Day surgery (SDC) | payer OTHER ==
[2025-05-08] MEDS ORDERED: Lidocaine HCl 4% Cream 5 GM ONE (08:04)
== END 2025-05-08 23:00 | disposition home or self-care (01) ==
LOC: WOUND 01:17
DX: E11.622 Type 2 diabetes mellitus with other skin ulcer (principal); L98.425 Non-pressure chronic ulcer of back with muscle involvement without evidence of necrosis; L02.212 Cutaneous abscess of back [any part, except buttock and flank]; I10 Essential (primary) hypertension
CPT/HCPCS: A9270

== ENCOUNTER 2025-05-08 01:33 | Day surgery (SDC) | payer OTHER ==
[2025-05-08] MEDS ORDERED: DAPTOmycin 400 MG in NS 50 ML IV SCH (06:00)
[2025-05-08 13:20] VITALS: BP 124/70
== END 2025-05-08 13:50 | disposition home or self-care (01) ==
LOC: ATC 01:33
DX: E11.622 Type 2 diabetes mellitus with other skin ulcer (principal); L98.425 Non-pressure chronic ulcer of back with muscle involvement without evidence of necrosis; L02.212 Cutaneous abscess of back [any part, except buttock and flank]; R78.81 Bacteremia; B95.62 Methicillin resistant Staphylococcus aureus infection as the cause of diseases classified elsewhere; B02.9 Zoster without complications; I10 Essential (primary) hypertension; E78.5 Hyperlipidemia, unspecified; Z87.891 Personal history of nicotine dependence; Z79.4 Long term (current) use of insulin; Z79.84 Long term (current) use of oral hypoglycemic drugs; Z79.899 Other long term (current) drug therapy
CPT/HCPCS: 96365; A9270; J0878

== ENCOUNTER 2025-05-09 03:06 | Day surgery (SDC) | payer OTHER ==
[2025-05-09] MEDS ORDERED: DAPTOmycin 400 MG in NS 50 ML IV SCH (06:00)
[2025-05-09 13:17] VITALS: BP 111/68
== END 2025-05-09 13:50 | disposition home or self-care (01) ==
LOC: ATC 03:06
DX: R78.81 Bacteremia (principal); B95.62 Methicillin resistant Staphylococcus aureus infection as the cause of diseases classified elsewhere; I10 Essential (primary) hypertension; E11.9 Type 2 diabetes mellitus without complications; Z79.84 Long term (current) use of oral hypoglycemic drugs; Z87.891 Personal history of nicotine dependence
CPT/HCPCS: 96365; J0878

== ENCOUNTER 2025-05-10 03:01 | Day surgery (SDC) | payer OTHER ==
[2025-05-10] MEDS ORDERED: DAPTOmycin 400 MG in NS 50 ML IV SCH (06:00)
[2025-05-10 13:29] VITALS: BP 132/68
== END 2025-05-10 13:52 | disposition home or self-care (01) ==
LOC: ATC 03:01
DX: R78.81 Bacteremia (principal); B02.9 Zoster without complications; E11.10 Type 2 diabetes mellitus with ketoacidosis without coma; E87.1 Hypo-osmolality and hyponatremia; I10 Essential (primary) hypertension; E78.5 Hyperlipidemia, unspecified; F15.90 Other stimulant use, unspecified, uncomplicated; E11.622 Type 2 diabetes mellitus with other skin ulcer; L02.212 Cutaneous abscess of back [any part, except buttock and flank]; L98.425 Non-pressure chronic ulcer of back with muscle involvement without evidence of necrosis; Z87.891 Personal history of nicotine dependence; Z79.84 Long term (current) use of oral hypoglycemic drugs
CPT/HCPCS: 96365; G0463; J0878

== ENCOUNTER 2025-05-10 03:12 | Day surgery (SDC) | payer OTHER | END 2025-05-10 23:00 | disposition home or self-care (01) | LOC: WOUND 03:12 | DX: E11.622 Type 2 diabetes mellitus with other skin ulcer (principal); L98.425 Non-pressure chronic ulcer of back with muscle involvement without evidence of necrosis; L02.212 Cutaneous abscess of back [any part, except buttock and flank] | CPT/HCPCS: G0463 ==

== ENCOUNTER 2025-05-11 01:03 | Day surgery (SDC) | payer OTHER ==
[2025-05-11] MEDS ORDERED: DAPTOmycin 400 MG in NS 50 ML IV SCH (06:00)
[2025-05-11 12:50] VITALS: BP 138/88
== END 2025-05-11 13:14 | disposition home or self-care (01) ==
LOC: ATC 01:03
DX: R78.81 Bacteremia (principal); B95.62 Methicillin resistant Staphylococcus aureus infection as the cause of diseases classified elsewhere; E11.9 Type 2 diabetes mellitus without complications; I10 Essential (primary) hypertension; E78.5 Hyperlipidemia, unspecified; B02.9 Zoster without complications; Z85.00 Personal history of malignant neoplasm of unspecified digestive organ; Z87.891 Personal history of nicotine dependence; Z79.4 Long term (current) use of insulin; Z79.84 Long term (current) use of oral hypoglycemic drugs; Z79.899 Other long term (current) drug therapy; Z93.3 Colostomy status
CPT/HCPCS: 96365; J0878

== ENCOUNTER 2025-05-12 01:06 | Day surgery (SDC) | payer OTHER ==
[2025-05-12] MEDS ORDERED: DAPTOmycin 400 MG in NS 50 ML IV SCH (06:00)
[2025-05-12 13:02] VITALS: BP 128/83
== END 2025-05-12 13:30 | disposition home or self-care (01) ==
LOC: ATC 01:06
DX: R78.81 Bacteremia (principal); B95.62 Methicillin resistant Staphylococcus aureus infection as the cause of diseases classified elsewhere; E11.9 Type 2 diabetes mellitus without complications; I10 Essential (primary) hypertension; E78.5 Hyperlipidemia, unspecified; B02.9 Zoster without complications; Z85.00 Personal history of malignant neoplasm of unspecified digestive organ; Z87.891 Personal history of nicotine dependence; Z79.4 Long term (current) use of insulin; Z79.84 Long term (current) use of oral hypoglycemic drugs; Z79.899 Other long term (current) drug therapy; Z93.3 Colostomy status
CPT/HCPCS: 96365; J0878

== ENCOUNTER 2025-05-13 00:24 | Day surgery (SDC) | payer OTHER ==
[2025-05-13] MEDS ORDERED: DAPTOmycin 400 MG in NS 50 ML IV SCH (06:00)
[2025-05-13 14:16] VITALS: BP 124/72
== END 2025-05-13 14:50 | disposition home or self-care (01) ==
LOC: ATC 00:24
DX: R78.81 Bacteremia (principal); B95.62 Methicillin resistant Staphylococcus aureus infection as the cause of diseases classified elsewhere; E11.9 Type 2 diabetes mellitus without complications; I10 Essential (primary) hypertension; E78.5 Hyperlipidemia, unspecified; Z79.84 Long term (current) use of oral hypoglycemic drugs; Z87.891 Personal history of nicotine dependence
CPT/HCPCS: 96365; J0878

== ENCOUNTER 2025-05-13 00:45 | Day surgery (SDC) | payer OTHER | END 2025-05-13 23:00 | disposition home or self-care (01) | LOC: WOUND 00:45 | DX: E11.622 Type 2 diabetes mellitus with other skin ulcer (principal); L98.425 Non-pressure chronic ulcer of back with muscle involvement without evidence of necrosis; L02.212 Cutaneous abscess of back [any part, except buttock and flank] | CPT/HCPCS: G0463 ==

== ENCOUNTER 2025-05-14 01:35 | Day surgery (SDC) | payer OTHER ==
[2025-05-14] MEDS ORDERED: DAPTOmycin 400 MG in NS 50 ML IV SCH (06:00)
[2025-05-14 13:20] VITALS: BP 139/79
== END 2025-05-14 13:53 | disposition home or self-care (01) ==
LOC: ATC 01:35
DX: R78.81 Bacteremia (principal); B95.62 Methicillin resistant Staphylococcus aureus infection as the cause of diseases classified elsewhere; E11.9 Type 2 diabetes mellitus without complications; I10 Essential (primary) hypertension; Z79.84 Long term (current) use of oral hypoglycemic drugs; Z87.891 Personal history of nicotine dependence
CPT/HCPCS: 96365; J0878

== ENCOUNTER 2025-05-15 03:41 | Day surgery (SDC) | payer OTHER ==
[2025-05-15] MEDS ORDERED: Lidocaine HCl 4% Cream 5 GM ONE (14:27)
== END 2025-05-15 23:00 | disposition home or self-care (01) ==
LOC: WOUND 03:41
DX: L98.425 Non-pressure chronic ulcer of back with muscle involvement without evidence of necrosis (principal); E11.622 Type 2 diabetes mellitus with other skin ulcer; L02.212 Cutaneous abscess of back [any part, except buttock and flank]; B95.62 Methicillin resistant Staphylococcus aureus infection as the cause of diseases classified elsewhere
CPT/HCPCS: A9270

== ENCOUNTER 2025-05-15 04:17 | Day surgery (SDC) | payer OTHER ==
[2025-05-15] MEDS ORDERED: DAPTOmycin 400 MG in NS 50 ML IV SCH (06:00)
[2025-05-15 13:20] VITALS: BP 129/68
== END 2025-05-15 13:41 | disposition home or self-care (01) ==
LOC: ATC 04:17
DX: R78.81 Bacteremia (principal); B95.62 Methicillin resistant Staphylococcus aureus infection as the cause of diseases classified elsewhere; E11.9 Type 2 diabetes mellitus without complications; I10 Essential (primary) hypertension; E78.5 Hyperlipidemia, unspecified; Z79.84 Long term (current) use of oral hypoglycemic drugs; Z87.891 Personal history of nicotine dependence; L98.425 Non-pressure chronic ulcer of back with muscle involvement without evidence of necrosis; E11.622 Type 2 diabetes mellitus with other skin ulcer; L02.212 Cutaneous abscess of back [any part, except buttock and flank]
CPT/HCPCS: 96365; A9270; J0878

== ENCOUNTER 2025-05-16 04:23 | Day surgery (SDC) | payer OTHER ==
[2025-05-16] MEDS ORDERED: DAPTOmycin 400 MG in NS 50 ML IV SCH (06:00)
[2025-05-16 13:31] VITALS: BP 130/71
== END 2025-05-16 14:04 | disposition home or self-care (01) ==
LOC: ATC 04:23
DX: R78.81 Bacteremia (principal); B95.62 Methicillin resistant Staphylococcus aureus infection as the cause of diseases classified elsewhere; E11.9 Type 2 diabetes mellitus without complications; I10 Essential (primary) hypertension; E78.5 Hyperlipidemia, unspecified; B02.9 Zoster without complications; Z85.00 Personal history of malignant neoplasm of unspecified digestive organ; Z87.891 Personal history of nicotine dependence; Z79.01 Long term (current) use of anticoagulants; Z79.4 Long term (current) use of insulin; Z79.84 Long term (current) use of oral hypoglycemic drugs; Z79.899 Other long term (current) drug therapy; Z93.3 Colostomy status
CPT/HCPCS: 96365; J0878

== ENCOUNTER 2025-05-17 03:46 | Day surgery (SDC) | payer OTHER ==
[2025-05-17] MEDS ORDERED: DAPTOmycin 400 MG in NS 50 ML IV SCH (06:00)
[2025-05-17 13:19] VITALS: BP 139/87
== END 2025-05-17 13:39 | disposition home or self-care (01) ==
LOC: ATC 03:46
DX: R78.81 Bacteremia (principal); B95.62 Methicillin resistant Staphylococcus aureus infection as the cause of diseases classified elsewhere; E11.9 Type 2 diabetes mellitus without complications; I10 Essential (primary) hypertension; E78.5 Hyperlipidemia, unspecified; Z79.84 Long term (current) use of oral hypoglycemic drugs; Z87.891 Personal history of nicotine dependence
CPT/HCPCS: 96365; J0878

== ENCOUNTER 2025-05-17 04:27 | Day surgery (SDC) | payer OTHER | END 2025-05-17 23:00 | disposition home or self-care (01) | LOC: WOUND 04:27 | DX: E11.622 Type 2 diabetes mellitus with other skin ulcer (principal); L98.425 Non-pressure chronic ulcer of back with muscle involvement without evidence of necrosis; L02.212 Cutaneous abscess of back [any part, except buttock and flank] | CPT/HCPCS: G0463 ==

== ENCOUNTER 2025-05-18 01:16 | Day surgery (SDC) | payer OTHER ==
[2025-05-18] MEDS ORDERED: DAPTOmycin 400 MG in NS 50 ML IV SCH (06:00)
[2025-05-18 12:47] VITALS: BP 159/80
== END 2025-05-18 13:05 | disposition home or self-care (01) ==
LOC: ATC 01:16
DX: R78.81 Bacteremia (principal); B02.9 Zoster without complications; E11.10 Type 2 diabetes mellitus with ketoacidosis without coma; E78.5 Hyperlipidemia, unspecified; E87.1 Hypo-osmolality and hyponatremia; I10 Essential (primary) hypertension; Z87.891 Personal history of nicotine dependence; Z79.84 Long term (current) use of oral hypoglycemic drugs
CPT/HCPCS: 96365; J0878

== ENCOUNTER 2025-05-19 03:17 | Day surgery (SDC) | payer OTHER ==
[2025-05-19] MEDS ORDERED: DAPTOmycin 400 MG in NS 50 ML IV SCH (06:00)
[2025-05-19 13:31] VITALS: BP 125/82
== END 2025-05-19 13:50 | disposition home or self-care (01) ==
LOC: ATC 03:17
DX: R78.81 Bacteremia (principal); B96.89 Other specified bacterial agents as the cause of diseases classified elsewhere; B95.62 Methicillin resistant Staphylococcus aureus infection as the cause of diseases classified elsewhere; E11.9 Type 2 diabetes mellitus without complications; I10 Essential (primary) hypertension; E78.5 Hyperlipidemia, unspecified; Z79.84 Long term (current) use of oral hypoglycemic drugs; Z87.891 Personal history of nicotine dependence
CPT/HCPCS: 96365; J0878

== ENCOUNTER 2025-05-20 00:27 | Day surgery (SDC) | payer OTHER ==
[2025-05-20] MEDS ORDERED: DAPTOmycin 400 MG in NS 50 ML IV SCH (06:00)
[2025-05-20 11:55] VITALS: BP 108/85
== END 2025-05-20 12:25 | disposition home or self-care (01) ==
LOC: ATC 00:27
DX: R78.81 Bacteremia (principal); B95.62 Methicillin resistant Staphylococcus aureus infection as the cause of diseases classified elsewhere; E11.9 Type 2 diabetes mellitus without complications; I10 Essential (primary) hypertension; E78.5 Hyperlipidemia, unspecified; B02.9 Zoster without complications; L02.212 Cutaneous abscess of back [any part, except buttock and flank]; Z85.00 Personal history of malignant neoplasm of unspecified digestive organ; Z87.891 Personal history of nicotine dependence; Z79.01 Long term (current) use of anticoagulants; Z79.4 Long term (current) use of insulin; Z79.84 Long term (current) use of oral hypoglycemic drugs; Z79.899 Other long term (current) drug therapy; Z93.3 Colostomy status
CPT/HCPCS: 96365; A9270; J0878

== ENCOUNTER 2025-05-20 00:38 | Day surgery (SDC) | payer OTHER ==
[2025-05-20] MEDS ORDERED: Lidocaine HCl 4% Cream 5 GM ONE (10:36)
== END 2025-05-20 23:00 | disposition home or self-care (01) ==
LOC: WOUND 00:38
DX: L02.212 Cutaneous abscess of back [any part, except buttock and flank] (principal); E11.9 Type 2 diabetes mellitus without complications; I10 Essential (primary) hypertension
CPT/HCPCS: A9270

== ENCOUNTER 2025-05-21 13:17 | Day surgery (SDC) | payer OTHER ==
[~2025-05-21 13:17] MED LIST changes: +DAPTOmycin 400 MG in NS 50 ML IV SCH
[2025-05-21 13:26] VITALS: BP 159/87
== END 2025-05-21 13:48 | disposition home or self-care (01) ==
LOC: ATC 13:17
DX: R78.81 Bacteremia (principal); B95.62 Methicillin resistant Staphylococcus aureus infection as the cause of diseases classified elsewhere; I10 Essential (primary) hypertension; E78.5 Hyperlipidemia, unspecified; E11.9 Type 2 diabetes mellitus without complications; Z79.84 Long term (current) use of oral hypoglycemic drugs; Z87.891 Personal history of nicotine dependence; Z93.3 Colostomy status
CPT/HCPCS: 96365; J0878

== ENCOUNTER 2025-05-22 08:19 | Day surgery (SDC) | payer OTHER ==
[2025-05-22 13:20] VITALS: BP 165/99
--- NOTE | 2025-05-28 10:20 | NUR ---
DAPTOMYCIN START/STOP INFUSION STARTED @ 1315 INFUSION FINISHED @ 1335 RUN TIME: 20 MINUTES
== END 2025-05-22 13:37 | disposition home or self-care (01) ==
LOC: ATC 08:19
DX: R78.81 Bacteremia (principal); B95.62 Methicillin resistant Staphylococcus aureus infection as the cause of diseases classified elsewhere; E11.9 Type 2 diabetes mellitus without complications; I10 Essential (primary) hypertension
CPT/HCPCS: 96365; J0878

== ENCOUNTER 2025-05-23 13:09 | Day surgery (SDC) | payer OTHER ==
[2025-05-23 13:18] VITALS: BP 148/82
== END 2025-05-23 13:36 | disposition home or self-care (01) ==
LOC: ATC 13:09
DX: R78.81 Bacteremia (principal); B95.62 Methicillin resistant Staphylococcus aureus infection as the cause of diseases classified elsewhere; E11.9 Type 2 diabetes mellitus without complications; I10 Essential (primary) hypertension; E78.5 Hyperlipidemia, unspecified; B02.9 Zoster without complications; Z85.00 Personal history of malignant neoplasm of unspecified digestive organ; Z87.891 Personal history of nicotine dependence; Z79.84 Long term (current) use of oral hypoglycemic drugs; Z93.3 Colostomy status
CPT/HCPCS: 96365; J0878

== ENCOUNTER 2025-05-24 01:12 | Day surgery (SDC) | payer OTHER ==
[~2025-05-24 01:12] MED LIST changes: -DAPTOmycin 400 MG in NS 50 ML IV SCH
[2025-05-24] MEDS ORDERED: DAPTOmycin 400 MG in NS 50 ML IV SCH (08:00)
[2025-05-24 13:12] VITALS: BP 160/89
== END 2025-05-24 13:37 | disposition home or self-care (01) ==
LOC: ATC 01:12
DX: R78.81 Bacteremia (principal); I10 Essential (primary) hypertension; E78.5 Hyperlipidemia, unspecified; E11.621 Type 2 diabetes mellitus with foot ulcer; L97.425 Non-pressure chronic ulcer of left heel and midfoot with muscle involvement without evidence of necrosis; L02.212 Cutaneous abscess of back [any part, except buttock and flank]; Z87.891 Personal history of nicotine dependence; Z79.84 Long term (current) use of oral hypoglycemic drugs
CPT/HCPCS: 96365; 99212; J0878

== ENCOUNTER 2025-05-25 10:13 | Day surgery (SDC) | payer OTHER ==
[~2025-05-25 10:13] MED LIST changes: +DAPTOmycin 400 MG in NS 50 ML IV SCH
[2025-05-25 13:00] VITALS: BP 164/88
== END 2025-05-25 13:28 | disposition home or self-care (01) ==
LOC: ATC 10:13
DX: R78.81 Bacteremia (principal); L98.425 Non-pressure chronic ulcer of back with muscle involvement without evidence of necrosis; E11.622 Type 2 diabetes mellitus with other skin ulcer; L02.212 Cutaneous abscess of back [any part, except buttock and flank]; I10 Essential (primary) hypertension; E78.5 Hyperlipidemia, unspecified; E87.1 Hypo-osmolality and hyponatremia; Z79.84 Long term (current) use of oral hypoglycemic drugs; Z87.891 Personal history of nicotine dependence
CPT/HCPCS: J0878

== ENCOUNTER 2025-05-26 07:01 | Day surgery (SDC) | payer OTHER ==
[2025-05-26 13:05] VITALS: BP 132/84
== END 2025-05-26 13:32 | disposition home or self-care (01) ==
LOC: ATC 07:01
DX: R78.81 Bacteremia (principal); L98.425 Non-pressure chronic ulcer of back with muscle involvement without evidence of necrosis; E11.622 Type 2 diabetes mellitus with other skin ulcer; L02.212 Cutaneous abscess of back [any part, except buttock and flank]; I10 Essential (primary) hypertension; E78.5 Hyperlipidemia, unspecified; E87.1 Hypo-osmolality and hyponatremia; Z87.891 Personal history of nicotine dependence; Z79.84 Long term (current) use of oral hypoglycemic drugs
CPT/HCPCS: 96365; J0878

== ENCOUNTER 2025-05-27 00:19 | Day surgery (SDC) | payer OTHER ==
[~2025-05-27 00:19] MED LIST changes: -DAPTOmycin 400 MG in NS 50 ML IV SCH
[2025-05-27] MEDS ORDERED: DAPTOmycin 400 MG in NS 50 ML IV SCH (06:00)
[2025-05-27 13:32] VITALS: BP 155/88
--- NOTE | 2025-05-27 14:50 | NUR ---
Pt returned to the [facility] after his wound care appointment today. He is done with his antibiotic course and is ready to have his powerglide IV dc'd. IV'd dc'd. electrocardiograph operator, Shandra, states pt will have his dressing changed on this coming so he will not need to come to the [facility] on Tuesday for another dressing change.
== END 2025-05-27 13:56 | disposition home or self-care (01) ==
LOC: ATC 00:19
DX: E11.622 Type 2 diabetes mellitus with other skin ulcer (principal); L98.425 Non-pressure chronic ulcer of back with muscle involvement without evidence of necrosis; R78.81 Bacteremia; L02.212 Cutaneous abscess of back [any part, except buttock and flank]; E78.5 Hyperlipidemia, unspecified; I10 Essential (primary) hypertension; Z87.891 Personal history of nicotine dependence; Z79.84 Long term (current) use of oral hypoglycemic drugs
CPT/HCPCS: 96365; J0878

== ENCOUNTER 2025-05-27 00:47 | Day surgery (SDC) | payer OTHER ==
[2025-05-27] MEDS ORDERED: Lidocaine HCl 4% Cream 5 GM ONE (14:04)
== END 2025-05-27 23:00 | disposition home or self-care (01) ==
LOC: WOUND 00:47
DX: E11.622 Type 2 diabetes mellitus with other skin ulcer (principal); L98.425 Non-pressure chronic ulcer of back with muscle involvement without evidence of necrosis; L08.89 Other specified local infections of the skin and subcutaneous tissue; L02.212 Cutaneous abscess of back [any part, except buttock and flank]; I10 Essential (primary) hypertension
CPT/HCPCS: A9270

== ENCOUNTER 2025-06-05 07:17 | Day surgery (SDC) | payer OTHER | END 2025-06-05 23:00 | disposition home or self-care (01) | LOC: WOUND 07:17 | DX: E11.622 Type 2 diabetes mellitus with other skin ulcer (principal); L98.425 Non-pressure chronic ulcer of back with muscle involvement without evidence of necrosis; L02.212 Cutaneous abscess of back [any part, except buttock and flank] | CPT/HCPCS: G0463 ==

== ENCOUNTER 2025-06-07 01:06 | Day surgery (SDC) | payer OTHER ==
[2025-06-07] MEDS ORDERED: Lidocaine HCl 4% Cream 5 GM ONE (14:57)
== END 2025-06-07 23:00 | disposition home or self-care (01) ==
LOC: WOUND 01:06
DX: L02.212 Cutaneous abscess of back [any part, except buttock and flank] (principal); E11.9 Type 2 diabetes mellitus without complications; I10 Essential (primary) hypertension
CPT/HCPCS: A9270

== ENCOUNTER 2025-06-10 08:36 | Day surgery (SDC) | payer OTHER | END 2025-06-10 23:36 | disposition home or self-care (01) | LOC: WOUND 08:36 | DX: E11.622 Type 2 diabetes mellitus with other skin ulcer (principal); L98.425 Non-pressure chronic ulcer of back with muscle involvement without evidence of necrosis; L02.212 Cutaneous abscess of back [any part, except buttock and flank]; I10 Essential (primary) hypertension | CPT/HCPCS: G0463 ==

== ENCOUNTER 2025-06-12 04:21 | Day surgery (SDC) | payer OTHER | END 2025-06-12 23:00 | disposition home or self-care (01) | LOC: WOUND 04:21 | DX: L02.212 Cutaneous abscess of back [any part, except buttock and flank] (principal); E11.9 Type 2 diabetes mellitus without complications | CPT/HCPCS: G0463 ==

== ENCOUNTER 2025-06-14 03:29 | Day surgery (SDC) | payer OTHER ==
[2025-06-14] MEDS ORDERED: Lidocaine HCl 4% Cream 5 GM ONE (13:48)
== END 2025-06-14 23:44 | disposition home or self-care (01) ==
LOC: WOUND 03:29
DX: L02.212 Cutaneous abscess of back [any part, except buttock and flank] (principal); E11.622 Type 2 diabetes mellitus with other skin ulcer; L98.425 Non-pressure chronic ulcer of back with muscle involvement without evidence of necrosis; I10 Essential (primary) hypertension
CPT/HCPCS: A9270

== ENCOUNTER 2025-06-18 01:03 | Day surgery (SDC) | payer OTHER | END 2025-06-18 23:00 | disposition home or self-care (01) | LOC: WOUND 01:03 | DX: E11.622 Type 2 diabetes mellitus with other skin ulcer (principal); L98.425 Non-pressure chronic ulcer of back with muscle involvement without evidence of necrosis; L02.212 Cutaneous abscess of back [any part, except buttock and flank] | CPT/HCPCS: G0463 ==

== ENCOUNTER 2025-06-21 03:33 | Day surgery (SDC) | payer OTHER | END 2025-06-21 23:00 | disposition home or self-care (01) | LOC: WOUND 03:33 | DX: L02.212 Cutaneous abscess of back [any part, except buttock and flank] (principal); I10 Essential (primary) hypertension; E11.9 Type 2 diabetes mellitus without complications | CPT/HCPCS: G0463 ==

== ENCOUNTER 2025-06-24 00:56 | Day surgery (SDC) | payer OTHER | END 2025-06-24 23:00 | disposition home or self-care (01) | LOC: WOUND 00:56 | DX: L02.212 Cutaneous abscess of back [any part, except buttock and flank] (principal); E11.622 Type 2 diabetes mellitus with other skin ulcer; L98.425 Non-pressure chronic ulcer of back with muscle involvement without evidence of necrosis | CPT/HCPCS: G0463 ==

== ENCOUNTER 2025-06-26 01:51 | Day surgery (SDC) | payer OTHER ==
[2025-06-26] MEDS ORDERED: Lidocaine HCl 4% Cream 5 GM ONE (08:31)
== END 2025-06-26 23:00 | disposition home or self-care (01) ==
LOC: WOUND 01:51
DX: L02.212 Cutaneous abscess of back [any part, except buttock and flank] (principal); E11.9 Type 2 diabetes mellitus without complications; I10 Essential (primary) hypertension
CPT/HCPCS: A6196; A9270; G0463

== ENCOUNTER 2025-06-28 08:00 | Day surgery (SDC) | payer OTHER | END 2025-06-28 23:00 | disposition home or self-care (01) | LOC: WOUND 08:00 | DX: E11.622 Type 2 diabetes mellitus with other skin ulcer (principal); L98.425 Non-pressure chronic ulcer of back with muscle involvement without evidence of necrosis; L02.212 Cutaneous abscess of back [any part, except buttock and flank] | CPT/HCPCS: A6196; G0463 ==

== ENCOUNTER 2025-07-01 02:32 | Day surgery (SDC) | payer OTHER ==
[2025-07-01] MEDS ORDERED: Lidocaine HCl 4% Cream 5 GM ONE (14:44)
== END 2025-07-01 23:00 | disposition home or self-care (01) ==
LOC: WOUND 02:32
DX: L02.212 Cutaneous abscess of back [any part, except buttock and flank] (principal); E11.622 Type 2 diabetes mellitus with other skin ulcer; L98.425 Non-pressure chronic ulcer of back with muscle involvement without evidence of necrosis; I10 Essential (primary) hypertension
CPT/HCPCS: A6196; A9270; G0463

== ENCOUNTER 2025-07-03 02:26 | Day surgery (SDC) | payer OTHER | END 2025-07-03 23:00 | disposition home or self-care (01) | LOC: WOUND 02:26 | DX: E11.622 Type 2 diabetes mellitus with other skin ulcer (principal); L98.425 Non-pressure chronic ulcer of back with muscle involvement without evidence of necrosis; L02.212 Cutaneous abscess of back [any part, except buttock and flank] | CPT/HCPCS: A6196; A6213; G0463 ==

== ENCOUNTER 2025-07-08 01:27 | Day surgery (SDC) | payer OTHER | END 2025-07-08 22:00 | disposition home or self-care (01) | LOC: WOUND 01:27 | DX: E11.622 Type 2 diabetes mellitus with other skin ulcer (principal); L98.425 Non-pressure chronic ulcer of back with muscle involvement without evidence of necrosis; I10 Essential (primary) hypertension; L02.212 Cutaneous abscess of back [any part, except buttock and flank] | CPT/HCPCS: A6196; A6213; G0463 ==

== ENCOUNTER 2025-07-10 04:33 | Day surgery (SDC) | payer OTHER | END 2025-07-10 23:00 | disposition home or self-care (01) | LOC: WOUND 04:33 | DX: S21.201A Unspecified open wound of right back wall of thorax without penetration into thoracic cavity, initial encounter (principal); X58.XXXA Exposure to other specified factors, initial encounter | CPT/HCPCS: A6196; A6213; G0463 ==

== ENCOUNTER 2025-07-12 00:01 | Day surgery (SDC) | payer OTHER | END 2025-07-12 23:00 | disposition home or self-care (01) | LOC: WOUND 00:01 | DX: E11.622 Type 2 diabetes mellitus with other skin ulcer (principal); L98.425 Non-pressure chronic ulcer of back with muscle involvement without evidence of necrosis; L02.212 Cutaneous abscess of back [any part, except buttock and flank]; I10 Essential (primary) hypertension | CPT/HCPCS: G0463 ==

== ENCOUNTER 2025-07-17 01:34 | Day surgery (SDC) | payer OTHER | END 2025-07-17 23:00 | disposition home or self-care (01) | LOC: WOUND 01:34 | DX: E11.622 Type 2 diabetes mellitus with other skin ulcer (principal); L98.425 Non-pressure chronic ulcer of back with muscle involvement without evidence of necrosis; L02.212 Cutaneous abscess of back [any part, except buttock and flank] | CPT/HCPCS: G0463 ==

== ENCOUNTER 2025-07-19 10:43 | Day surgery (SDC) | payer OTHER | END 2025-07-19 23:00 | disposition home or self-care (01) | LOC: WOUND 10:43 | DX: L02.212 Cutaneous abscess of back [any part, except buttock and flank] (principal); E11.9 Type 2 diabetes mellitus without complications; I10 Essential (primary) hypertension | CPT/HCPCS: G0463 ==

== ENCOUNTER 2025-07-23 01:02 | Day surgery (SDC) | payer OTHER | END 2025-07-23 23:00 | disposition home or self-care (01) | LOC: WOUND 01:02 | DX: L02.212 Cutaneous abscess of back [any part, except buttock and flank] (principal); I10 Essential (primary) hypertension; E11.9 Type 2 diabetes mellitus without complications; Z87.828 Personal history of other (healed) physical injury and trauma | CPT/HCPCS: G0463 ==